=== PATIENT | male | born 1960 | race Caucasian/White ===

== ENCOUNTER → 2018-05-16 00:38 | Outpatient (CLI) | payer OTHER, SELFPAY ==
--- NOTE | 2018-05-16 12:30 | MERGE_ITS ---
*[facility]* *[facility]* [address] [place] [address] Date of study: 05/16/2018 Transthoracic Echocardiography M-mode, complete 2D, complete spectral Doppler, and color Doppler *STUDY CONCLUSIONS* Summary: 1. Left ventricle: The cavity size was normal. Wall thickness was normal. Systolic function was normal. The estimated ejection fraction was 60-65%. Wall motion was normal; there were no regional wall motion abnormalities. Findings consistent with diastolic dysfunction. There was no evidence of elevated ventricular filling pressure by Doppler parameters. 2. Right ventricle: The cavity size was normal. Wall thickness was normal. Systolic function was normal. 3. Pulmonary arteries: Pulmonary systolic pressure was within the normal range, in the range of 25mm Hg to 30mm Hg. *PATIENT PRESENTATION* Height: 172.7cm ((68in) ) S/D Pressure: 128 / 78 Weight: 96.2kg ((211.6lb) ) BSA: 2.18m^2 Test start time: 12:38 PM. Test stop time: 01:24 PM. ORDERING Michael Zazueta MD REFERRING Michael Zazueta MD PERFORMING Unknown PERFORMING [facility] [employer]S OPERATOR RT Elise Romano)BECCA (CT) *PROCEDURE DATA* Procedure information: The patient was identified by two identifiers. This study was interpreted by [facility]. Pertinent images and digital data are archived for permanent storage and are available for subsequent review. No prior study was available for comparison. Study status: Routine. Transthoracic echocardiography. M-mode, complete 2D, complete spectral Doppler, and color Doppler. A Transthoracic Echocardiogram was performed. Scanning was performed from the parasternal, apical, subcostal, and suprasternal notch acoustic windows. Images were obtained using an [id number] cardiac ultrasound machine. Image quality was adequate. Study completion: The patient tolerated the procedure well. There were no complications. History: PMH: Sarcoidosis, pulmonary. exertional dyspnea. please assess for SEGOVIA, PHTN, LV dysfunction. hx sarcoidosis *CARDIAC ANATOMY* Left ventricle: The cavity size was normal. Wall thickness was normal. Systolic function was normal. The estimated ejection fraction was 60-65%. Wall motion was normal; there were no regional wall motion abnormalities. Findings consistent with diastolic dysfunction. There was no evidence of elevated ventricular filling pressure by Doppler parameters. Aortic valve: Trileaflet; mildly thickened leaflets. Mobility was not restricted. Doppler: Transvalvular velocity was within the normal range. There was no stenosis. There was no significant regurgitation. VTI ratio of LVOT to aortic valve: 0.81. Valve area (VTI): 2.6cm^2. Indexed valve area (VTI): 1.2cm^2/m^2. Peak velocity ratio of LVOT to aortic valve: 0.8. Valve area (Vmax): 2.5cm^2. Indexed valve area (Vmax): 1.2cm^2/m^2. Mean velocity ratio of LVOT to aortic valve: 0.78. Valve area (Vmean): 2.4cm^2. Indexed valve area (Vmean): 1.1cm^2/m^2. Mean gradient (S): 3.2mm Hg. Peak gradient (S): 5.6mm Hg. Aorta: Aortic root: The aortic root was normal in size. Ascending aorta: The ascending aorta was normal in size. Mitral valve: Mildly thickened leaflets. Mobility was not restricted. Doppler: Transvalvular velocity was within the normal range. There was no evidence for stenosis. There was trivial regurgitation. Valve area by pressure half-time: 4.2cm^2. Indexed valve area by pressure half-time: 1.9cm^2/m^2. Peak gradient (D): 2.5mm Hg. Left atrium: The atrium was normal in size. Right ventricle: The cavity size was normal. Wall thickness was normal. Systolic function was normal. Pulmonic valve: Structurally normal valve. Doppler: Transvalvular velocity was within the normal range. There was no evidence for stenosis. There was trivial regurgitation. Peak gradient (S): 9.3mm Hg. Tricuspid valve: Structurally normal valve. Doppler: Transvalvular velocity was within the normal range. There was no evidence for stenosis. There was trivial regurgitation. Pulmonary artery: Pulmonary systolic pressure was within the normal range, in the range of 25mm Hg to 30mm Hg. Right atrium: The atrium was normal in size. Pericardium: There was no pericardial effusion. Systemic veins: Inferior vena cava: Well visualized. The vessel was patent and normal in size. The respirophasic diameter changes were in the normal range (greater than or equal to 50%). Baseline ECG: Normal sinus rhythm. Measurements Left ventricle Value Reference LV ID, ED, PLAX 4.2 cm 3.5 - 6.0 LV ID, ES, PLAX 2.8 cm 2.1 - 4.0 LV PW thickness, ED, PLAX 1.0 cm LV end-diastolic volume, 1-p A2C 84 ml LV ejection fraction, 1-p A2C 65 % LV end-diastolic volume, 1-p A4C 74 ml LV ejection fraction, 1-p A4C 56 % LV e', lateral 0.119 m/sec LV E/e', lateral 7 LV e', medial 0.083 m/sec LV E/e', medial 10 LV e', average 0.101 m/sec LV E/e', average 8 Ventricular septum Value Reference IVS thickness, ED, PLAX 1.0 cm LVOT Value Reference LVOT ID, A-P 2.0 cm LVOT area 3.1 cm^2 LVOT peak velocity, S 0.95 m/sec LVOT mean velocity, S 0.67 m/sec LVOT VTI, S 20.8 cm LVOT peak gradient, S 3.6 mm Hg LVOT mean gradient, S 2 mm Hg Stroke volume (SV), LVOT DP 65 ml Stroke index (SV/bsa), LVOT DP 30 ml/m^2 Aortic valve Value Reference Aortic valve peak velocity, S 1.2 m/sec Aortic valve mean velocity, S 0.86 m/sec Aortic valve VTI, S 25.6 cm Aortic mean gradient, S 3.2 mm Hg Aortic peak gradient, S 5.6 mm Hg VTI ratio, LVOT/AV 0.81 Aortic valve area, VTI 2.6 cm^2 Velocity ratio, peak, LVOT/AV 0.8 Aortic valve area, peak velocity 2.5 cm^2 Velocity ratio, mean, LVOT/AV 0.78 Aortic valve area, mean velocity 2.4 cm^2 Aortic valve area/bsa, mean velocity 1.1 cm^2/m^2 Aorta Value Reference Aortic root ID, ED 3.4 cm Ascending aorta ID, A-P, S 3.2 cm RVOT Value Reference RVOT VTI, S 22.1 cm Left atrium Value Reference LA ID, A-P, ES 3.3 cm LA ID/bsa, A-P 1.5 cm/m^2 <=2.2 LA area, ES, A4C 18 cm^2 8.8 - 23.4 LA area, ES, A2C 16 cm^2 LA volume/bsa, ES, 1-p A4C 24 ml/m^2 LA volume, ES, 2-p 44 ml LA volume/bsa, ES, 2-p 20 ml/m^2 LA/aortic root ratio 0.97 Mitral valve Value Reference Mitral E-wave peak velocity 0.79 m/sec Mitral A-wave peak velocity 0.61 m/sec Mitral deceleration time 181 ms 150 - 230 Mitral pressure half-time 53 ms Mitral peak gradient, D 2.5 mm Hg Mitral E/A ratio, peak 1.29 Mitral valve area, PHT, DP 4.2 cm^2 Pulmonary veins Value Reference Pulmonary vein peak velocity, S 0.52 m/sec Pulmonary vein peak velocity, D 0.37 m/sec Pulmonary vein velocity ratio, peak, 1.41 S/D Pulmonary vein A-wave reversal peak 0.36 m/sec velocity Pulmonary vein A-wave reversal 166 ms duration Tricuspid valve Value Reference Tricuspid regurg peak velocity 2.6 m/sec Tricuspid peak RV-RA gradient 27.9 mm Hg Right atrium Value Reference RA area, ES, A4C 15.3 cm^2 8.3 - 19.5 Pulmonic valve Value Reference Pulmonic peak gradient, S 9.3 mm Hg Pulmonic regurg velocity, ED 1.53 m/sec Pulmonic regurg gradient, ED 9 mm Hg Legend: (L) and (H) jaquelin values outside specified reference range. I have personally reviewed the images and have reviewed and edited the reported findings. Electronically signed by Yadiel Casey 05/16/2018 14:28
== END ==
PROVIDERS: PCP Internal Medicine; Visit Provider Internal Medicine
DX: R06.09 Other forms of dyspnea (principal); D86.0 Sarcoidosis of lung; R59.0 Localized enlarged lymph nodes
CPT/HCPCS: 93306

== ENCOUNTER 2021-03-31 22:07 | Outpatient (REF) | payer OTHER, SELFPAY ==
[2021-03-31 22:19] LABS: Calculated LDL 119 mg/dL (<100); Cholesterol 216 mg/dL (<200); HDL Cholesterol 56 mg/dL (40-60); Triglyceride 208 mg/dL (<150)
== END 2021-03-31 22:08 | disposition home or self-care (01) ==
LOC: NCHCN 22:07
PROVIDERS: PCP Internal Medicine; Visit Provider Internal Medicine
DX: Z13.220 Encounter for screening for lipoid disorders (principal)
CPT/HCPCS: 80061

== ENCOUNTER 2021-04-03 04:13 | Outpatient (CLI) | payer OTHER, SELFPAY ==
--- NOTE | 2021-04-03 | DI.RAD_ITS ---
Exam(s) XR HIP LT COMPLETE AP PELVIS EXAM: XR HIP LT COMPLETE AP PELVIS INDICATION: LT HIP PAIN, M25.552. COMPARISON: CT CHEST ABD PELVIS WITH CONTRAST from 04/26/2013 TECHNIQUE: 2D digital imaging was performed. FINDINGS: The hip joint spaces are well maintained. There is mild right acetabular spurring. Enthesophytes ar e noted at the iliac wings. SI joints and pubic symphysis are unremarkable. Vascular calcifications are seen. IMPRESSION: Mild degenerative changes. DATA REPOSITORY: RADIATION DOSE DELIVERED:
--- NOTE | 2021-04-03 | DI.RAD_ITS ---
Exam(s) XR SACROILIAC JOINTS EXAM: XR SACROILIAC JOINTS CLINICAL HISTORY: PAIN, M25.552. TECHNIQUE: 2D digital imaging was performed. COMPARISON: No exams were available for comparison FINDINGS: Bones: No fracture is present. No bony destructive lesion is seen. Alignment is satisfactory. Enth esophytes are noted at the iliac wings. SI Joint: No fusion, erosions or sclerosis is seen. Hip joint spaces are well maintained. Soft Tissue: Normal. IMPRESSION: Normal radiographs of the SI Joints. DATA REPOSITORY: RADIATION DOSE DELIVERED:
--- NOTE | 2021-04-03 | DI.RAD_ITS ---
Exam(s) XR LUMBAR SPINE COMPLETE EXAM: XR LUMBAR SPINE COMPLETE CLINICAL HISTORY: LUMBAR BACK PAIN, M54.5. TECHNIQUE: 2D digital imaging was performed. COMPARISON: No exams were available for comparison FINDINGS: L5 spondylolysis and mild, grade 1 L5-S1 spondylolisthesis. Moderate to severe L5-S1 disc space narro wing. This is unchanged from 2013 CT. Mild narrowing of the L4-5 disc space. Small endplate osteophyt es throughout. Degenerative facet changes from L3-4 through L5-S1. No compression fracture. No scol iosis. IMPRESSION: Stable L5 spondylolysis and mild L5-S1 spondylolisthesis. Degenerative disc changes and facet degene rative changes. DATA REPOSITORY: RADIATION DOSE DELIVERED:
== END 2021-04-03 04:33 ==
PROVIDERS: PCP Internal Medicine; Visit Provider Internal Medicine
DX: M43.06 Spondylolysis, lumbar region; M43.17 Spondylolisthesis, lumbosacral region; M47.817 Spondylosis without myelopathy or radiculopathy, lumbosacral region; M16.12 Unilateral primary osteoarthritis, left hip
CPT/HCPCS: 72110; 72202; 73502

== ENCOUNTER 2021-07-17 16:28 | Outpatient (REF) | payer OTHER, SELFPAY ==
[2021-07-17 17:49] LABS: Anion Gap 6.3 mmol/L (3-11); BUN 14 mg/dL (7-18); CO2 28.7 mmol/L (21.0-32.0); CREATININE 1.1 mg/dL (0.70-1.30); Calcium 9.1 mg/dL (8.5-10.1); Chloride 107 mmol/L (98-107); Glucose 102 mg/dL (74-106); Potassium 4.1 mmol/L (3.5-5.1); Sodium 142 mmol/L (136-145)
== END 2021-07-17 16:29 | disposition home or self-care (01) ==
LOC: LBN 16:28
PROVIDERS: PCP Internal Medicine; Visit Provider Student in an Organized Health Care Education/Training Program
DX: D86.0 Sarcoidosis of lung (principal)
CPT/HCPCS: 80048

== ENCOUNTER 2021-07-27 03:14 | Outpatient (CLI) | payer OTHER, SELFPAY ==
--- NOTE | 2021-07-27 15:00 | RT.EKG_ITS ---
APPROVED REPORT Exam: Resting ECG Reason for Exam: screening for sarcoidosis Patient Location: O HR:132 bpm ECG Measurements Heart Rate 132 [address] [place] [id number] P [id number] QRSd 83 QRS 36 QT 324 T 76 QTc 480 Conclusion Atrial fibrillation...V-rate 103-165, irreg A-activity Consider anteroseptal infarct...Q >30mS, dimin R, V1-V2
[2021-07-27] MEDS: Albuterol HFA 18 GM 200 PUFF INH IH (16:09)
[2021-07-27] MEDS: Inhaler, Assist Device 1 EACH MC (16:09)
--- NOTE | 2021-07-29 11:57 | W.PFT ---
Date of service: 07/27/21 Time of Service: 15:04 Pulmonary Function Test Result Requesting Provider Aneudy Indications: Sarcoidosis Interpretation Spirometry: No airflow limitation. No significant bronchodilator effect. Lung Volumes: Evidence of air trapping Diffusion Capacity: Normal diffusion Airway Pressure: Normal airways resistance Impression Evidence of air trapping may represent airflow obstruction in the correct clinical context Clinical Correlation therefore is recommended.
== END 2021-07-27 03:15 | disposition home or self-care (01) ==
PROVIDERS: PCP Internal Medicine; Visit Provider Student in an Organized Health Care Education/Training Program
DX: D86.0 Sarcoidosis of lung (principal); R06.09 Other forms of dyspnea; Z87.891 Personal history of nicotine dependence; Z57.2 Occupational exposure to dust
CPT/HCPCS: 94060; 94726; 94729; 93005; 93010

== ENCOUNTER 2022-08-25 13:58 | Outpatient (CLI) | payer OTHER, SELFPAY ==
[2022-08-25 15:22] LABS: Anion Gap 8.5 mmol/L (3-11); BUN 12 mg/dL (7-18); CO2 28.5 mmol/L (21.0-32.0); CREATININE 0.9 mg/dL (0.70-1.30); Calcium 8.9 mg/dL (8.5-10.1); Chloride 105 mmol/L (98-107); Estimated GFR 98.38 (mL/min/1.73m2); Glucose 94 mg/dL (74-106); Potassium 4.1 mmol/L (3.5-5.1); Sodium 142 mmol/L (136-145)
== END 2022-08-25 13:59 | disposition home or self-care (01) ==
LOC: LBN 13:59
PROVIDERS: PCP Internal Medicine; Visit Provider Student in an Organized Health Care Education/Training Program
DX: D86.0 Sarcoidosis of lung (principal)
CPT/HCPCS: 80048

== ENCOUNTER 2022-08-27 01:47 | Outpatient (CLI) | payer OTHER, SELFPAY ==
--- OUTSIDE RECORDS SUMMARY | 2022-08-27 01:52 | XMS_ITS | Encounter Summary ---
:[address] [facility] Address [address] [place] [address] Care Team Providers Name Role Phone Unavailable Primary Care Provider Unavailable Encounter Details Date Type Department Care Team Description 09/26/2007 Results Only [facility] - Lynn Valle, Chr istopher, conversion DO [address] [facility] [address] [facility] [address] [place], [place] [id number] [place] [id number] (Wo rk) Social History Tobacco Use Types Packs/Day Years Used Date Smoking Tobacco: Never Assessed Sex Assigned at Date Recorded Not on file documented as of this encounter Plan of Treatment Not on filedocumented as of this encounter Procedures Procedure Name Priority Date/Time Associated Diagnosis Comme [facility] SURGICAL PATHOLOGY Routine 09/26/2007 0:00 EST Re sults for this procedure are i n the results section. documented in this encounter Results SURGICAL PATHOLOGY (09/26/2007 0:00 EST) Component Value Ref Test Analysis Performed At [facility] Range Method Time Signature Pathology SURGICAL PATHOLOGY REPORT [facility] Report: Reports generated via electronic interface contain isabelle valle data; SHASHANK SORENSON however they are lacking the format of the original report. Caution should be taken when reading/interpreting unformatte d reports. Name: ? DONATO GUNTER ? Accession #: ? [id number] ? : ? 1960 (Age: 46) ??M ? Collect Date: ? 09/26/2007 ? Location: ? [facility] ? Receive Date: ? 09/26/2007 ? Provider: VINCENZO VALLE DO Copy to: CASTRO FLORES MD ? Final Pathologic Diagnosis: ? Colon, sigmoid, segmental resection: 1. ?Diverticulitis with acute subserosal absces s formation. 2. ? Surgical resection margins viable. Document reviewed and electronically signed by: Nirav Keenan MD Report ??Date: 09/28/2007 14:32 By the signature above, the attending physician certifies th at he/she has personally conducted a gross and/or microscopic examin ation of the described specimens and rendered or confirmed the above diagnosis. Specimen(s) Received: ? Sigmoid colon Clinical History: ? Diverticulitis Gross Description: ? Received in formalin labelled [place] and sigmoid colon is a 24.0 cm in length by 5.0 cm in average inner circum ference segment of open colon received with both surgical margins stapled closed and with a marked amount of surrounding serosal adipose tissue. ??The mucosa is light montelongo, velvety, and folded. ??Serial sections reveal numerou s scattered diverticula, none of which appear perforated or hemorrhagic. ??The muscular is of the colon is moderately thickened, with the total reta wel wall measuring up to 1.5 cm in thickness. ??The serosa is focally dusky and hyperemic, but is otherwise generally smooth, light montelongo, and yellow. ??Sections of the specimen reveal no obvious lymph nodes within the pericolic adipose tissue. ??Wire Products Inspector sections of the specimen are submitted as follows: BLOCK ARORA A1, A2 ?Sections taken adjacent to both stapled surgical margins A3-A7 ?Five sections of scattered diverticula (Lexis Roberts)/lornan End of Report Specimen (Source) Anatomical Collection Method Collection Time Re ceived Time Location / / Volume Laterality 09/26/2007 09/26/2007 21:0 1 EST Vincenzo Valle DO PATHOLOGY ORDERABLES Performing Organization Address City/State/ZIP Code Phon e Number [facility] [address] [place] [address] SERVICES [facility] [address] [place] [address] documented in this encounter Visit Diagnoses Not on filedocumented in this encounter
--- NOTE | 2022-08-27 13:30 | RT.EKG_ITS ---
APPROVED REPORT Exam: Resting ECG Reason for Exam: SARCOID SCREENING Patient Location: O HR:64 bpm ECG Measurements Heart Rate 64 AXIS PA 150 P 46 QRSd 88 QRS 11 QT 421 T 44 QTc 434 Conclusion Sinus rhythm...normal P axis, V-rate 60- 99 Probable left atrial enlargement...P >50mS, <-0.10mV V1 Otherwise normal
[2022-08-27] MEDS: Albuterol HFA 18 GM 200 PUFF INH IH (13:58)
[2022-08-27] MEDS: Inhaler, Assist Device 1 EACH MC (13:59)
--- NOTE | 2022-08-31 15:23 | W.PFT ---
Date of service: 08/27/22 Time of Service: 13:02 Pulmonary Function Test Result Requesting Provider Aneudy Indications: Sarcoidosis Interpretation Spirometry: There is no airflow limitation. There is no significant bronchodilator response. Lung Volumes: There is some air trapping. Diffusion Capacity: Normal diffusion Airway Pressure: Normal airways resistance. Impression Normal pulmonary function testing. Note: When compared to 07/27/21, FEV1 and FVC are improved, TLC and DLCO are stable. Clinical Correlation therefore is recommended.
== END 2022-08-27 01:48 | disposition home or self-care (01) ==
LOC: RT 01:50
PROVIDERS: PCP Internal Medicine; Visit Provider Student in an Organized Health Care Education/Training Program
DX: D86.0 Sarcoidosis of lung (principal); Z87.891 Personal history of nicotine dependence
CPT/HCPCS: 94060; 94726; 94729; 93005; 93010

== ENCOUNTER 2022-09-24 15:55 | Outpatient (REF) | payer OTHER, SELFPAY ==
[2022-09-24 21:10] LABS: Anion Gap 5.7 mmol/L (3-11); BUN 23 mg/dL (7-18); CO2 29.3 mmol/L (21.0-32.0); CREATININE 1.3 mg/dL (0.70-1.30); Calcium 9.1 mg/dL (8.5-10.1); Chloride 105 mmol/L (98-107); Estimated GFR 63.28 (mL/min/1.73m2); Glucose 102 mg/dL (74-106); Potassium 4.8 mmol/L (3.5-5.1); Sodium 140 mmol/L (136-145)
== END 2022-09-24 15:56 | disposition home or self-care (01) ==
LOC: NCHCN 15:55
PROVIDERS: PCP Internal Medicine; Visit Provider Internal Medicine
DX: I10 Essential (primary) hypertension (principal)
CPT/HCPCS: 80048

== ENCOUNTER 2022-12-17 00:32 | Outpatient (CLI) | payer OTHER, SELFPAY ==
--- NOTE | 2022-12-17 | DI.RAD_ITS ---
Exam(s) XR CHEST 2V PA LATERAL EXAM: XR CHEST 2V PA LATERAL CLINICAL HISTORY: ATYPICAL PNEUMONIA, J18.9 TECHNIQUE: 2D digital imaging was performed of the chest. Two images were obtained. PA and lateral views were obtained. COMPARISON: CR CHEST 2 VIEWS PA,LAT from 04/16/2013 FINDINGS: MEDIASTINUM: Normal. HEART: Normal. PULMONARY VASCULATURE: Normal. LUNGS: Clear. PLEURAL SPACE: No pleural effusion or pneumothorax. BONE:Within normal limits for the patient's age. OTHER FINDINGS:Normal. IMPRESSION: No acute pulmonary findings. DATA REPOSITORY: RADIATION DOSE DELIVERED:
== END 2022-12-17 00:52 ==
LOC: DI 00:32
PROVIDERS: PCP Internal Medicine; Visit Provider Family Medicine
DX: J18.9 Pneumonia, unspecified organism (principal)
CPT/HCPCS: 71046

== ENCOUNTER 2023-02-04 15:38 | Outpatient (REF) | payer OTHER, SELFPAY ==
[2023-02-04 21:34] LABS: Anion Gap 6.2 mmol/L (3-11); BUN 21 mg/dL (7-18); CO2 29.8 mmol/L (21.0-32.0); CREATININE 1.1 mg/dL (0.70-1.30); Calcium 9.1 mg/dL (8.5-10.1); Chloride 105 mmol/L (98-107); Estimated GFR 76.85 (mL/min/1.73m2); Glucose 99 mg/dL (74-106); Potassium 4.5 mmol/L (3.5-5.1); Sodium 141 mmol/L (136-145)
== END 2023-02-04 15:39 | disposition home or self-care (01) ==
LOC: NCHCN 15:38
PROVIDERS: PCP Internal Medicine; Visit Provider Internal Medicine
DX: I10 Essential (primary) hypertension (principal)
CPT/HCPCS: 80048

== ENCOUNTER 2023-10-19 14:49 | Emergency (ER) | payer OTHER, SELFPAY ==
[2023-10-19 14:53] VITALS: BP 158/136; PULSE 93; RESP 18; TEMP 37; O2SAT 97
[2023-10-19 15:08] VITALS: BP 158/136; PULSE 93; RESP 18; TEMP 37; O2SAT 97
--- NOTE | 2023-10-19 15:10 | W.ED.GENAD ---
HPI General Stated Complaint: Abd Prob WENDI: 3 Date/Time Provider Initiated Documentation: 10/19/23 14:59. HPI Narrative: This is a very pleasant 63-year-old male with past medical history of partial colectomy secondary to diverticulitis, previous appendectomy, previous hernia repairs, psoriasis on Stelara, presents today for evaluation of left-sided abdominal pain. Due to this is present since 11 PM last 4 hours. Pain is described as dull with occasional sharp episodes. It is constant in nature. He has had 1 episode of vomiting. He denies any diarrhea. No urinary complaints. He denies any fever or chills. He states that this feels identical to his previous episode of diverticulitis in the past. He has not taken anything for the pain. No other complaints at this time. No other modifying factors. Related Data Home Medications Medication Instructions Recorded Confirmed ustekinumab 90 mg/mL subcutaneous 90 mg subcut Q12W 04/30/21 10/19/23 syringe (Stelara) albuterol sulfate 90 mcg/actuation 2 puff inhalation 6XD PRN 03/11/23 10/19/23 aerosol inhaler shortness of breath or wheezing #1 inh losartan 50 mg tablet 50 mg PO DAILY 10/19/23 10/19/23 Previous Rx's Medication Instructions Recorded albuterol sulfate 90 mcg/actuation 2 puff inhalation 6XD PRN 03/11/23 aerosol inhaler shortness of breath or wheezing #1 inh Allergies Allergy/AdvReac Type Severity Reaction Status Date / Time lisinopril AdvReac Mild Unverified 10/19/23 14:58 Review of Systems All systems reviewed & are unremarkable except as noted in HPI and below PFSH All Active Problems (Updated 10/19/23 @ 16:51 by Yeyo Barragan DO) Kidney stone (Chronic) Mediastinal lymphadenopathy (Acute) Pulmonary sarcoidosis (Acute) Lumbar back pain (Acute) Obesity (Chronic) Paresthesia (Acute) Psoriasis (Chronic) Screening for colon cancer (Acute) Surgical History History of colon resection Family History Maternal Grandmother Heart disease Sarcoidosis Social History (Reviewed 10/19/23 @ 15:12 by SIXTO Arroyo Smoking/Tobacco Use Status: Former Tobacco Use Quit Date: 10/10/99 Tobacco: How many years used: 15 Smoking risk assessment performed?: Yes Alcohol Intake: current Alcohol Intake frequency: holidays/special occasions only Drug use: Never Substance use type: does not use Housing: house Additional Social history: 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 Exam Narrative Exam Narrative: 1.Const: Well-nourished, Well-developed, appearing stated age 2.Eyes: PERRL, no conjunctival injection, and symmetrical lids. 3.ENT: Atraumatic external nose and ears. Moist MM. Neck: Symmetric, trachea midline, No thyromegaly. 4.CVS: +S1/S2, No murmurs or gallops. Peripheral pulses 2+ and equal in all extremities. Brisk capillary refill in all extremities. 5.RESP: Unlabored respiratory effort. Clear to auscultation bilaterally. No wheezes rales or rhonchi 6.GI: Soft, nondistended. Mild voluntary guarding on the left. Mild rebound on the left. Mild tenderness in the left mid and lower quadrants. No pain at McBurney's point. Negative Guallpa sign. No genital or testicular tenderness. 7.MSK: Normocephalic/Atraumatic, Extremities w/o deformity or ttp No cyanosis or clubbing, Normal movement of all extremities 8.Skin: Warm, Dry. No rashes or lesions. 9.Neuro: pbx inspector II-XII grossly intact. Sensation grossly intact, no focal neurologic deficits. 10.Psych: (AAO) x3. Appropriate mood and affect Course Vital Signs Vital signs: Vital Signs Temperature 37.0 C 10/19/23 14:53 Pulse 93 H 10/19/23 14:53 Respiratory Rate 18 10/19/23 14:53 Blood Pressure 158/136 H 10/19/23 14:53 Pulse Oximetry 97 10/19/23 14:53 Temperature 37.0 C 10/19/23 15:08 Temperature Source Temporal Artery Scan 10/19/23 15:08 Pulse 93 H 10/19/23 15:08 Respiratory Rate 18 10/19/23 15:08 Respiratory Effort Normal 10/19/23 15:08 Blood Pressure 158/136 H 10/19/23 15:08 Pulse Oximetry 97 10/19/23 15:08 Pain Level 8 10/19/23 15:08 Medical Decision Making This is a very pleasant 63-year-old male with past medical history of partial colectomy secondary to diverticulitis, previous appendectomy, previous hernia repairs, psoriasis on Stelara, presents today for evaluation of left-sided abdominal pain. Due to this is present since 11 PM last 4 hours. Pain is described as dull with occasional sharp episodes. It is constant in nature. He has had 1 episode of vomiting. He denies any diarrhea. No urinary complaints. He denies any fever or chills. He states that this feels identical to his previous episode of diverticulitis in the past. He has not taken anything for the pain. No other complaints at this time. No other modifying factors. Exam demonstrates a well-appearing male, mild left-sided abdominal tenderness. No testicular tenderness. Differential includes obstruction, diverticulitis, or other acute intra-abdominal etiology. Will get a CAT scan, gently rehydrate, give Toradol else for meds, monitor closely and reassess. Kidney stones also on the differential. 4:48 PM On reassessment patient is feeling much better. His pain has resolved. Laboratory workup shows no white count bandemia or left shift. Lactate normal. Electrolytes normal, renal function excellent, lipase normal. CAT scan shows evidence of a very small 2 mm calculus in the urinary bladder and there is mild dilatation of the left ureter. Correlate with a recently passed kidney stone. Urinalysis shows hematuria but no infection. Patient otherwise feels well. No evidence of diverticulitis. Patient stable for discharge as his pain is resolved and the stone appears to be in the bladder. Will give a strainer for home use. Recommend continued hydration. Discussed red flags for which to return. I have extensively reviewed the treatment plan and discharge instructions with the patient. I have addressed all patient concerns at this time. The patient was made aware of what symptoms to monitor for that would warrant a return to the emergency department. Discussed the plan with the patient, they demonstrate verbal understanding and agreement with our assessment and plan at this time. The documentation in this chart was dictated using [employer] dictation software. Please excuse any dictation errors. FINDINGS: VISUALIZED LUNG BASES: No nodules nor pleural effusions evident. ABDOMEN: There is no ascites. LIVER: There are no focal hepatic lesions evident. No dilated intrahepatic ducts. GALLBLADDER/BILIARY: No obvious gallbladder pathology. CBD is not dilated. PANCREAS: No evidence of pancreatic mass nor dilatation of the pancreatic duct. SPLEEN: Spleen is not enlarged. No obvious intrasplenic lesions. Splenic and portal veins are patent. ADRENALS: There are no significant adrenal masses. KIDNEYS:No cysts evident. No solid renal masses. No calculi nor hydronephrosis.. ABDOMINAL AORTA: Calcified. Upper normal diameter. Common iliac arteries also calcified. LYMPH NODES:There is no retroperitoneal nor paraaortic adenopathy. ABDOMINAL WALL: No evidence of significant anterior abdominal wall nor inguinal hernia. GI: There is been partial sigmoid resection. There is diverticulosis in the descending-left colon above this level without evidence of acute diverticulitis. Appendix is not seen. No evidence of appendicitis. PELVIS: GI: No evidence of appendicitis.No evidence of acute sigmoid diverticulitis. Previous partial sigmoid resection. No abnormality seen at the at the anastomosis. No free air. LYMPH NODES: There is no intrapelvic nor inguinal adenopathy. REPRODUCTIVE: Tiny calculus in the dependent wall the bladder. URINARY BLADDER: There is a solitary tiny calculus in the pending wall the bladder consistent with recently passed stone. There are no calculi at the ureterovesical junctions. Left ureter is slightly prominent in size which may be the side which recently passed the calculus which is now present in the urinary bladder. OSSEOUS: No fractures and no significant osseous lesions. There is anterolisthesis L5 upon S1 due to L5 pars defects and there is also advanced disc space narrowing at L5-S1 level. IMPRESSION: 1. There is evidence of previous partial sigmoid resection. There multiple diverticuli above this level but no evidence of acute diverticulitis, free air, nor abscess. 2. There is solitary small 2 millimeter calculus in the urinary bladder and there is mild dilatation of the left ureter. Suspect that this is a recently passed left-sided kidney stone. There are no remaining calculi in the kidney. No calculi seen in the opposite-right kidney. 3. Anterolisthesis of L5 upon S1 due to bilateral pars defects at L5 level. Quality:[facility] Health Related Social Needs: No Data to Display Discharge Plan Disposition Patient Disposition: Home Discharge Details Clinical Impression: Kidney stone Primary Care Provider: Michael Zazueta ED Provider: Yyeo Barragan Home Meds and New Rx's Prescriptions: No Action Stelara 90 mg/mL syringe 90 mg subcut Q12W albuterol sulfate 90 mcg/actuation HFA aerosol inhaler 2 puff inhalation 6XD PRN (Reason: shortness of breath or wheezing) Qty: 1 12RF losartan 50 mg tablet 50 mg PO DAILY Patient Comments: TAKE ONE TABLET BY MOUTH EVERY DAY Discharge Instructions Instructions: Kidney Stones (ED) Additional Instructions: At this time you have evidence of a passed kidney stone. Please stay well-hydrated and drink plenty of fluids. Please strain your urine to collect the kidney stone, after which can be brought into your family doctor or urology for stone analysis. If you notice any worsening of your symptoms, or any new symptoms such as vomiting, diarrhea, fever, chills, shortness of breath, chest pain, numbness, weakness, or fainting , please return immediately to the emergency department for reevaluation. Please follow up with your primary care provider as soon as possible for reassessment and reevaluation. As always, it was a pleasure participating in your medical care today. If you notice any worsening of your symptoms, or any new symptoms such as vomiting, diarrhea, fever, chills, shortness of breath, chest pain, numbness, weakness, or fainting , please return immediately to the emergency department for reevaluation. Please follow up with your primary care provider as soon as possible for reassessment and reevaluation. As always, it was a pleasure participating in your medical care today. Referrals: Andrew Sorto MD [ [facility] STAFF PHYSICIAN] - Michael Zazueta MD [Primary Care Provider] -
[2023-10-19 15:16] LABS: Lactate 1.3 mmol/L (0.6-1.4)
[2023-10-19 15:17] LABS: Abs Immature Grans 0.03 10^3/uL (0.0-0.06); Absolute Basophil Count 0.04 10^3/uL (0.0-0.2); Absolute Eosinophil Count 0.25 10^3/uL (0.0-0.7); Absolute Lymphocyte Count 1.27 10^3/uL (1.2-3.4); Absolute Monocyte Count 0.65 10^3/uL (0.1-0.8); Absolute Neutrophil Count 5.24 10^3/uL (1.2-6.7); Basophils % 0.5; Eosinophils % 3.3; HCT 45.9 % (40.0-50.0); HGB 15.5 g/dL (13.5-17.5); Immature Grans % 0.4; MCH 30.3 pg (27.0-33.0); MCHC 33.8 % (32.0-36.0); MCV 90 fL (80-95); MPV 9.5 fL (8.0-11.0); Monocytes % 8.7; Neutrophils % 70.1; Platelet Count 223 10^3/uL (130-400); RBC 5.11 10^6/uL (4.36-5.78); RDW 12.2 % (11.8-14.1); RDW-SD 40.2 fL; WBC 7.48 10^3/uL (4.4-10.8)
[2023-10-19] MEDS: Ketorolac 15 MG/ML VIAL IVP (15:20)
[2023-10-19] MEDS: Normal Saline 500 ML IV (15:20)
[2023-10-19] MEDS: ACETAMINOPHEN 1,000 MG/100 ML BTL 400 MG IVPB (15:20)
[2023-10-19 15:35] LABS: ALT 39 U/L (16-63); AST 28 U/L (15-37); Alkaline Phosphatase 59 U/L (46-116); Anion Gap 7.7 mmol/L (3-11); BUN 14 mg/dL (7-18); Bilirubin, Total 0.9 mg/dL (0.2-1.0); CO2 28.3 mmol/L (21.0-32.0); Calcium 9.6 mg/dL (8.5-10.1); Chloride 104 mmol/L (98-107); Estimated GFR 85.63 (mL/min/1.73m2); Glucose 107 mg/dL (74-106); Lipase 52 U/L (16-77); Sodium 140 mmol/L (136-145); Total Protein 7.5 g/dL (6.4-8.2)
[2023-10-19] MEDS: Omnipaque 350 MG/ML 100 ML BTL IJ (15:52)
[2023-10-19] MEDS: Normal Saline - Diluent 50 ML VIAL IJ (15:52)
--- NOTE | 2023-10-19 16:00 | DI.CT_ITS ---
Exam(s) CT ABDOMEN PELVIS W EXAM: CT ABDOMEN PELVIS W CLINICAL HISTORY: vomiting, left sided abd pain, hx part. colectomy. TECHNIQUE: Imaging Protocol: Axial computed tomography images with coronal and sagittal reformatted images were created and reviewed CONTRAST MATERIAL: Intravenous: Omnipaque-350 100cc Oral: None COMPARISON: No exams were available for comparison FINDINGS: VISUALIZED LUNG BASES: No nodules nor pleural effusions evident. ABDOMEN: There is no ascites. LIVER: There are no focal hepatic lesions evident. No dilated intrahepatic ducts. GALLBLADDER/BILIARY: No obvious gallbladder pathology. CBD is not dilated. PANCREAS: No evidence of pancreatic mass nor dilatation of the pancreatic duct. SPLEEN: Spleen is not enlarged. No obvious intrasplenic lesions. Splenic and portal veins are paten t. ADRENALS: There are no significant adrenal masses. KIDNEYS:No cysts evident. No solid renal masses. No calculi nor hydronephrosis.. ABDOMINAL AORTA: Calcified. Upper normal diameter. Common iliac arteries also calcified. LYMPH NODES:There is no retroperitoneal nor paraaortic adenopathy. ABDOMINAL WALL: No evidence of significant anterior abdominal wall nor inguinal hernia. GI: There is been partial sigmoid resection. There is diverticulosis in the descending-left colon ab ove this level without evidence of acute diverticulitis. Appendix is not seen. No evidence of appen dicitis. PELVIS: GI: No evidence of appendicitis.No evidence of acute sigmoid diverticulitis. Previous partial sigmoi d resection. No abnormality seen at the at the anastomosis. No free air. LYMPH NODES: There is no intrapelvic nor inguinal adenopathy. REPRODUCTIVE: Tiny calculus in the dependent wall the bladder. URINARY BLADDER: There is a solitary tiny calculus in the pending wall the bladder consistent with re cently passed stone. There are no calculi at the ureterovesical junctions. Left ureter is slightly prominent in size which may be the side which recently passed the calculus which is now present in th e urinary bladder. OSSEOUS: No fractures and no significant osseous lesions. There is anterolisthesis L5 upon S1 due to L5 pars defects and there is also advanced disc space narr owing at L5-S1 level. IMPRESSION: 1. There is evidence of previous partial sigmoid resection. There multiple diverticuli above this le malu but no evidence of acute diverticulitis, free air, nor abscess. 2. There is solitary small 2 millimeter calculus in the urinary bladder and there is mild dilatation of the left ureter. Suspect that this is a recently passed left-sided kidney stone. There are no re maining calculi in the kidney. No calculi seen in the opposite-right kidney. 3. Anterolisthesis of L5 upon S1 due to bilateral pars defects at L5 level. Report called by myself to ER physician RADIATION DOSE DELIVERED: 1,324.54mGy.cm Total DLP DATA REPOSITORY: All CT scans at this facility are submitted to the National Radiology Data Registry (NRDR) Dose Index Registry (DIR) with the [employer] (ACR). RADIATION OPTIMIZATION: All CT scans at this facility use at least one of these dose optimization te chniques: automated exposure control; mA and/or kV adjustment per patient size (includes targeted exa ms where dose is matched to clinical indication); or iterative reconstruction.
[2023-10-19 16:24] VITALS: BP 177/108; PULSE 114; RESP 16; O2SAT 94
[2023-10-19 16:58] LABS: Bilirubin Negative (Negative); Blood Large (Negative); Clarity Clear (Clear); Glucose Negative (Negative); Ketones Negative (Negative); Leukocyte Esterase Negative (Negative); Nitrite Negative (Negative); Urobilinogen 0.2 mg/dL (Up to 0.2); pH 6.5 (5-8)
[2023-10-19 17:07] LABS: Bacteria Negative HPF (Negative); C & S Indicated? No; Crystals Negative HPF (Negative); Epithelial Cells Rare HPF (Negative); Mucus Negative (Negative); RBC 20-50 HPF (0-2); WBC Negative HPF (0-5)
[2023-10-19 17:23] VITALS: BP 186/102; PULSE 70; TEMP 36.3; O2SAT 95
== END 2023-10-19 17:27 | disposition home or self-care (01) ==
PROVIDERS: Emergency Provider Student in an Organized Health Care Education/Training Program; PCP Internal Medicine
DX: R10.32 Left lower quadrant pain (principal); R20.0 Anesthesia of skin; Z87.891 Personal history of nicotine dependence; Z90.49 Acquired absence of other specified parts of digestive tract
CPT/HCPCS: 36415; 80053; 83690; 96361; 96374; 96375; 99285; 74177; 81003; 81015; 83605; 85025; 99284; J0131; J1885; J3490

== ENCOUNTER 2023-12-08 11:55 | Outpatient (REF) | payer OTHER, SELFPAY ==
[2023-12-08 14:27] LABS: Anion Gap 6.5 mmol/L (3-11); BUN 21 mg/dL (7-18); CO2 30.5 mmol/L (21.0-32.0); CREATININE 1.1 mg/dL (0.70-1.30); Calcium 9.6 mg/dL (8.5-10.1); Chloride 105 mmol/L (98-107); Estimated GFR 76.37 (mL/min/1.73m2); Glucose 116 mg/dL (74-106); Potassium 4.1 mmol/L (3.5-5.1); Sodium 142 mmol/L (136-145)
== END 2023-12-08 11:56 | disposition home or self-care (01) ==
LOC: NCHCN 11:55
PROVIDERS: PCP Internal Medicine; Referring Provider Family Medicine; Visit Provider Family Medicine
DX: I10 Essential (primary) hypertension (principal)
CPT/HCPCS: 80048

== ENCOUNTER 2025-02-26 18:35 | Outpatient (REF) | payer OTHER, SELFPAY ==
[2025-02-26 22:09] LABS: HCT 46.9 % (40.0-50.0); HGB 15.8 g/dL (13.5-17.5); MCH 30.7 pg (27.0-33.0); MCHC 33.7 % (32.0-36.0); MCV 91 fL (80-95); MPV 10.4 fL (8.0-11.0); Platelet Count 219 10^3/uL (130-400); RBC 5.15 10^6/uL (4.36-5.78); RDW 12.5 % (11.8-14.1); RDW-SD 41.2 fL; WBC 6.72 10^3/uL (4.4-10.8)
[2025-02-26 22:22] LABS: Hemoglobin A1C 5.7 % (<5.7)
[2025-02-26 22:33] LABS: ALT 41 U/L (16-63); AST 32 U/L (15-37); Albumin 3.9 g/dL (3.4-5.0); Alkaline Phosphatase 68 U/L (46-116); Anion Gap 6.7 mmol/L (3-11); BUN 17 mg/dL (7-18); Bilirubin, Total 0.7 mg/dL (0.2-1.0); CO2 28.3 mmol/L (21.0-32.0); Calcium 9.4 mg/dL (8.5-10.1); Calculated LDL 108 mg/dL (<100); Chloride 102 mmol/L (98-107); Cholesterol 189 mg/dL (<200); Glucose 98 mg/dL (74-106); HDL Cholesterol 54 mg/dL (>or=40); Magnesium 2.1 mg/dL (1.8-2.4); Sodium 137 mmol/L (136-145); TSH (W/Ref FT4) 2.33 uIU/mL (0.36-3.74); Triglyceride 135 mg/dL (<150)
== END 2025-02-26 18:36 | disposition home or self-care (01) ==
LOC: NCHCN 18:35
PROVIDERS: PCP Internal Medicine; Visit Provider Nurse Practitioner Family
DX: E66.9 Obesity, unspecified (principal); E78.49 Other hyperlipidemia; I48.91 Unspecified atrial fibrillation
CPT/HCPCS: 80053; 80061; 85027; 83036; 83735; 84443

== ENCOUNTER 2025-03-12 01:00 | Outpatient (CLI) | payer OTHER, SELFPAY ==
--- NOTE | 2025-03-12 14:34 | DI.US_ITS ---
APPROVED REPORT EXAM: Comprehensive 2D, Doppler, and color-flow Echocardiogram Patient Location: Out-Patient Butter Melter: Rika Partida RDCS (AE) Indications: A Fib UNSPECIFIED TYPE Other Information Study Quality: Fair. Technically limited study due to arrhythmia.. Conclusion Normal left ventricular wall thickness and chamber size. Ejection fraction was 55%. Wall motion was normal Normal right ventricular size and function Both atria are normal in size There are no structural valvular abnormalities Estimated right ventricular systolic pressure is 24 mmHg Patient was in atrial fibrillation throughout the study, with [id number] variation. Overall rate w as moderately elevated Wall motion Left Ventricle The left ventricle is normal size. Arrhythmia throughout exam. Beat to beat variation. The overall le ft ventricular systolic function appears normal. There is normal left ventricular wall thickness. The re is normal LV segmental wall motion. There is no ventricular septal defect visualized. LVEF is 55%. Right Ventricle The right ventricle is normal size. Right ventricular systolic function is grossly normal. Atria The left atrium size is normal. The right atrium size is normal. The interatrial septum is intact wit h no evidence for an atrial septal defect. Aortic Valve The aortic valve is normal in structure. Aortic valve is trileaflet. There is no aortic valvular sten osis. No aortic regurgitation is present. Mitral Valve The mitral valve is normal in structure. No evidence of mitral valve stenosis. Trace mitral regurgita tion. Tricuspid Valve The tricuspid valve is normal in structure. There is no tricuspid valve stenosis. Trace to mild tricu spid regurgitation. The RVSP is 23.5 mmHg. Pulmonic Valve The pulmonary valve is normal in structure. There is no pulmonic valvular stenosis. There is no pulmo oliver valvular regurgitation. Great Vessels The aortic root is normal in size. The ascending aorta is normal in size. Aortic arch is not well vis ualized. IVC is normal in size and collapses >50% with inspiration. Pericardium There is no pericardial effusion. 2D Dimensions IVSD d PLAX 0.95 cm M: 0.6-1.2 Ao Root d 3.14 cm M: 3.1 - 3.7 LVPW d PLAX 0.98 cm M: 0.6 - 1.2 Ao Asc Diam d 3.19 cm M: 2.6 - 3.4 LVID d PLAX 4.13 cm M: 4.2 - 5.8 LVDs 2.95 cm M: 2.5 - 4.0 LV EF Teichholz 55.5 % FS 28.55 % LV EDV (Teich) 75.6 mL LV ESV (Teich) 33.6 mL M-Mode TAPSE 2.13 cm (M/F) >1.7 LA Volume LA Length A4C 4.1 cm LA Length A2C 4.7 cm LA Area A4C s 11.59 cm2 LA Area A2C s 14.15 cm2 LA Vol A4C A-L 27.91 mL LA Vol A2C A-L 36.29 mL LA Vol Biplane A-L 34.1 mL LA Vol/BSA A4C A-L LA Vol/BSA A2C A-L LA Vol/BSA BP A-L 16.0 mL/m2 LA Vol A4C MOD 25.6 mL LA Vol A2C MOD 34.5 mL LA Vol BP MOD 31.7 mL RA Volume RA Area A4C 13.2 cm2 RA ESV A4C (A-L) 30.1mL RA Vol/BSA A4C A-L RA Length A4C 4.9 cm RA ESV A4C (MOD) 28.7mL LV Diastology MV E' medial 0.124 (>0.07 m/s) MV E Vmax 1.09 (0.4-1.3 m/s) MV E/E' MED 8.80 (<14) MV E' lateral 0.149 (>0.1 m/s) MV E/E' LAT 7.28 (<14) MV E' Average 0.136 m/s MV E/E'(average) 7.97 Aortic Valve AoV Vmax 1.06 m/s LVOT Vmax 0.84 m/s AoV Peak Grad 4.5 mmHg LVOT Peak Grad 2.8 mmHg AoV Area (Vmax) 2.56 cm2 LVOT VTI 0.135 m AoV VTI 0.176 m LVOT Mean Grad 1.6 mmHg AoV Mean Hector. 0.80 m/s LVOT SV 43.41 mL AoV Mean Grad 2.8 mmHg LVOT Diam s 2.00 cm AoV Area (VTI) 2.46 cm2 AV Regurg Peak Gr. 4.50 mmHg Velocity Ratio 0.79 Mitral Valve MV DT 168 (160-240 msec) MV Vmax TIPS 0.94 m/s MV Mean Grad 1.1 (<2mmHg) MV VTI 0.229 m Pulmonary Valve PV Vmax 0.90 (0.5-1.5 m/s) RVOT Vmax 0.81 m/s PV Peak Grad 3.2 mmHg RVOT Peak Gr. 2.6 mmHg PV Mean Hector 0.71 m/s RVOT VTI 0.144 m PV Mean Grad 2.2 mmHg RVOT Mean Gr. 1.6 mmHg Tricuspid Valve RA Pressure 3.00 mmHg TR Vmax 2.26 m/s TV S' 0.14 m/s TR Peak Grad 20.4 mmHg RVSP (TR) 23.5 mmHg
== END 2025-03-12 01:20 ==
LOC: DI 01:01
PROVIDERS: PCP Nurse Practitioner Family; Visit Provider Internal Medicine Cardiovascular Disease
DX: I48.91 Unspecified atrial fibrillation (principal)
CPT/HCPCS: 93306

== ENCOUNTER 2025-04-26 08:27 | Outpatient (CLI) | payer OTHER, SELFPAY | END 2025-04-26 08:28 | disposition home or self-care (01) | PROVIDERS: PCP Nurse Practitioner Family; Visit Provider Registered Nurse | DX: I48.0 Paroxysmal atrial fibrillation (principal); I49.3 Ventricular premature depolarization; I47.20 Ventricular tachycardia, unspecified | CPT/HCPCS: 93270 ==

== ENCOUNTER 2025-05-28 08:22 | Outpatient (CLI) | payer OTHER, SELFPAY ==
--- NOTE | 2025-05-28 09:42 | W.CARDEVENT ---
Date of service: 05/28/25 Time of Service: 09:42 Cardiac Event Recorder Referring Provider:: Genesis Reeves Indications:: Paroxysmal atrial fibrillation Cardiac Event Note: This is a cardiac event monitor. Patient was monitored for 29 days and 13 hours Rhythm throughout was sinus. Average heart rate overall was 64. Minimum was 57. Maximum was 127 There were rare atrial premature beats. There was no apparent atrial fibrillation. There were rare ventricular ectopic beats. 16 seconds of nonsustained ventricular tachycardia was recorded, rate 127, asymptomatic. This occurred at 7:26 PM on May 23
== END 2025-05-28 08:23 | disposition home or self-care (01) ==
LOC: CARDOPNVT 08:22
PROVIDERS: PCP Nurse Practitioner Family; Visit Provider Internal Medicine Cardiovascular Disease
DX: I48.91 Unspecified atrial fibrillation (principal); I47.20 Ventricular tachycardia, unspecified
CPT/HCPCS: 93272

== ENCOUNTER 2025-07-12 15:23 | Outpatient (REF) | payer OTHER, SELFPAY ==
[2025-07-12 21:39] LABS: ALT 37 U/L (16-63); AST 28 U/L (15-37); Albumin 3.8 g/dL (3.4-5.0); Alkaline Phosphatase 73 U/L (46-116); Anion Gap 9.5 mmol/L (3-11); BUN 15 mg/dL (7-18); Bilirubin, Total 0.6 mg/dL (0.2-1.0); CO2 29.5 mmol/L (21.0-32.0); Calcium 8.7 mg/dL (8.5-10.1); Chloride 102 mmol/L (98-107); Estimated GFR 85.10 (mL/min/1.73m2); Glucose 165 mg/dL (74-106); Potassium 3.4 mmol/L (3.5-5.1); Sodium 141 mmol/L (136-145); Total Protein 6.7 g/dL (6.4-8.2)
[2025-07-15 10:14] LABS: PSA, Screening 2.3 ng/mL (<=4.5)
== END 2025-07-12 15:24 | disposition home or self-care (01) ==
LOC: NCHCN 15:23
PROVIDERS: PCP Nurse Practitioner Family; Visit Provider Nurse Practitioner Family
DX: I10 Essential (primary) hypertension (principal); Z12.5 Encounter for screening for malignant neoplasm of prostate
CPT/HCPCS: 80053; 84153